=== PATIENT | female | born 1995 | race Caucasian/White ===

== ENCOUNTER 2016-09-02 21:41 | Emergency (ER) | payer SELFPAY ==
[~2016-09-02] VITALS: Ht 152.4 cm; Wt 45.4 kg
[~2016-09-02 21:41] MED LIST: CEPH500C PO; PREN-115 PO; [UNRECOGNIZED DRUG - REMARK]
--- OUTSIDE RECORDS SUMMARY | 2016-09-02 21:52 | XMS REPORT | Continuity of Care Document ---
Author Author [facility] Organization [facility] Address Unknown Phone Unavailable Allergies Active Description Code Type Severity Reaction Onset Reported/Identified Relationship to Patient Clinical Status Yes ceftriaxone Drug Allergy N/A N/A Erroneous Yes ROCEPHIN Drug Allergy N/A Rash 10/10/2011 Yes Rocephin Drug Allergy N/A N/A 04/25/2013 Yes No known allergies NK N/A N/A 04/26/2013 Confirmed or Verified Medications Problems Date Dx Coded Attending Type Code Diagnosis Diagnosed By 03/23/2009 D 079.99 UNSPEC VIRAL INFECTION 03/23/2009 D 276.51 DEHYDRATION 05/18/2009 D 543.0 HYPERPLASIA OF APPENDIX 05/18/2009 A 789.03 ABDOMINAL PAIN RT LW GLENNA 07/21/2010 D 789.00 ABDOMINAL PAIN, UNSPECIF 11/01/2010 D 789.00 ABDOMINAL PAIN, UNSPECIF 11/02/2010 D 789.00 ABDOMINAL PAIN, UNSPECIF 12/06/2010 D 569.3 RECTAL ANAL HEMORRHAGE 12/06/2010 D 787.91 DIARRHEA 12/06/2010 D 789.06 ABDOMINAL PAIN EPIGASTRI 12/06/2010 D 569.3 RECTAL ANAL HEMORRHAGE 12/06/2010 D 787.91 DIARRHEA 12/06/2010 D 789.06 ABDOMINAL PAIN EPIGASTRI 04/25/2013 JAIRO ALBERTO, YOHANNES Ordoñez 599.0 URIN TRACT INFECTION NOS 04/25/2013 JAIRO ALBERTO, YOHANNES Ordoñez 644.03 THRT ALESSANDRA LABOR-ANTEPART 04/25/2013 JAIRO ALBERTO, YOHANNES Ordoñez 646.63 INFECTION-ANTEPARTUM 04/27/2013 JERRELL ALBERTO, KENNEDI Ordoñez 054.10 GENITAL HERPES NOS 04/27/2013 JERRELL ALBERTO, KENNEDI Ordoñez 647.63 OTH VIRAL DIS-ANTEPARTUM 04/27/2013 JERRELL ALBERTO, KENNEDI Ordoñez 648.93 OTH CURR COND-ANTEPARTUM 04/27/2013 JERRELL ALBERTO, KENNEDI Ordoñez 780.60 FEVER NOS 04/27/2013 JERRELL ALBERTO, KENNEDIChester Ordoñez 789.09 ABDOMINAL PAIN, OTHER 04/30/2013 YOHANNES GILL MD 054.10 GENITAL HERPES NOS 04/30/2013 YOHANNES GILL MD 647.61 OTH VIRAL DIS-DELIVERED 04/30/2013 YOHANNES GILL MD 658.11 ALESSANDRA RUPT MEMBRAN-DELIV 04/30/2013 YOHANNES GILL MD 658.13 ALESSANDRA RUPT MEMB-ANTEPART 04/30/2013 YOHANNES GILL MD V27.0 DELIVER-SINGLE LIVEBORN 05/02/2013 YOHANNES GILL MD 054.10 GENITAL HERPES NOS 05/02/2013 YOHANNES GILL MD 647.61 OTH VIRAL DIS-DELIVERED 05/02/2013 YOHANNES GILL MD 658.11 ALESSANDRA RUPT MEMBRAN-DELIV 05/02/2013 YOHANNES GILL MD 658.13 ALESSANDRA RUPT MEMB-ANTEPART 05/02/2013 YOHANNES GILL MD V27.0 DELIVER-SINGLE LIVEBORN Procedures Code [place] [address] HYDRATE IV INFUSION, ADD-ON JERRELL ALBERTO , KENNEDI E 03/22/2009 69886 THER/PROPH/DIAG INJ, IV PUSH JERRELL ALBERTO , KENNEDI E 03/22/2009 39276 OBSERVATION CARE EZEKIEL ALBERTO, BUSHRA Strickland 03/22/2009 99759 EMERGENCY DEPT VISIT EZEKIEL ALBERTO, BUSHRA Strickland 03/22/2009 J0456 AZITHROMYCIN JERRELL ALBERTO, KENNEDI E 03/22/2009 87532 ROUTINE VENIPUNCTURE JERRELL ALBERTO, KENNEDI E 03/23/2009 60597 CHEST X-RAY JERRELL ALBERTO, KENNEDI E 03/23/2009 49259 COMPLETE CBC W/AUTO DIFF WBC JERRELL ALBERTO , KENNEDI E 03/23/2009 J7050 NS SOLUTION 250 CC INFUSION JERRELL ALBERTO , KENNEDI E 03/23/2009 J7120 RINGER'S LACTATE INFUSION JERRELL ALBERTO, KENNEDI E 03/23/2009 30682 ANESTH, SURG LOWER ABDOMEN KHOITSONIA 05/18/2009 77094 THER/PROPH/DIAG INJ, SC/IM YOHANNES GILL MD 07/21/2010 80539 EMERGENCY DEPT VISIT JAIRO ALBERTO, OYHANNES Baer 07/21/2010 J0696 CEFTRIAXONE SODIUM INJECTION JAIRO ALBERTO, YOHANNES Baer 07/21/2010 99061 ROUTINE VENIPUNCTURE JERRELL ALBERTO, KENNEDI E 11/01/[address] ABDOMEN W/DYE JERRELL ALBERTO, KENNEDI E 11/01/2010 88738 COMPREHEN METABOLIC PANEL JERRELL ALBERTO, KENNEDI E 11/01/2010 50611 COMPLETE CBC W/AUTO DIFF WBC JERRELL ALBERTO , KENNEDI E 11/01/2010 69596 EMERGENCY DEPT VISIT JERRELL ALBERTO, KENNEDI E 11/01/2010 Q9967 LOCM 300-399MG/ML IODINE,1ML JERRELL ALBERTO , KENNEDI E 11/01/2010 91539 HEPATOBILIARY IMAGING JERRELL ALBERTO, KENNEDI E 11/02/2010 A9537 TC99M MEBROFENIN JERRELL ALBERTO, KENNEDI E 11/02/2010 42459 UPPR GI ENDOSCOPY, DIAGNOSIS JERRELL ALBERTO , KENNEDI E 12/06/2010 16371 DIAGNOSTIC COLONOSCOPY JERRELL ALBERTO, KENNEDI E 12/06/2010 96416 ANESTH, LOW INTESTINE SCOPE VINTSONIA 12/06/2010 98773 URINALYSIS, AUTO W/SCOPE JAIRO ALBERTO, YOHANNES Baer 04/25/2013 46651 HYDRATE IV INFUSION, ADD-ON YOHANNES GILL MD 04/25/2013 35954 THER/PROPH/DIAG IV INF, INIT JAIRO ALBERTO, YOHANNES Baer 04/25/2013 82143 TX/PRO/DX INJ NEW DRUG YOHANNES URBAN MD 04/25/2013 58208 TX/PRO/DX INJ NEW DRUG YOHANNES LUCIANO MD 04/25/2013 56928 OBSERVATION CARE YOHANNES GILL MD 04/25/2013 42628 EMERGENCY DEPT VISIT YOHANNES GILL MD 04/25/2013 J0696 CEFTRIAXONE SODIUM INJECTION YOHANNES GILL MD 04/25/2013 J2405 ONDANSETRON HCL INJECTION YOHANNES GILL MD 04/25/2013 J7030 INFUSION, NS, 1000 CC YOHANNES GILL MD 04/25/2013 J7050 NS SOLUTION 250 CC INFUSION YOHANNES GILL MD 04/25/2013 64415 OB , LIMITED, FETUS(S) JAIRO ALBERTO, YOHANNES Baer 04/26/2013 56801 URINALYSIS, AUTO W/SCOPE JAIRO ALBERTO, YOHANNES J 04/26/2013 93965 HYDRATE IV INFUSION, ADD-ON JAIRO ALBERTO , YOHANNES J 04/26/2013 72700 THER/PROPH/DIAG IV INF, INIT JAIRO ALBERTO, YOHANNES Baer 04/26/2013 66622 TX/PRO/DX INJ NEW DRUG LUISA GILL MD, YOHANNES J 04/26/2013 55318 OBSERVATION CARE JAIRO ALBERTO, YOHANNES J 04/26/2013 56352 EMERGENCY DEPT VISIT JAIRO ALBERTO, YOHANNES J 04/26/2013 J0696 CEFTRIAXONE SODIUM INJECTION JAIRO ALBERTO, YOHANNES J 04/26/2013 J2270 MORPHINE JAIRO ALBERTO, YOHANNES Baer 04/26/2013 J2405 ONDANSETRON HCL INJECTION JAIRO ALBERTO, YOHANNES J 04/26/2013 J7030 INFUSION, NS, 1000 CC JAIRO ALBERTO, YOHANNES J 04/26/2013 J7050 NS SOLUTION 250 CC INFUSION JAIRO ALBERTO , YOHANNES J 04/26/2013 93791 URINE CULTURE/COLONY COUNT JAIRO ALBERTO , YOHANNES J 04/27/2013 02118 HYDRATE IV INFUSION, ADD-ON JAIRO ALBERTO , YOHANNES J 04/27/2013 40108 THER/PROPH/DIAG IV INF LUISA GILL MD, YOHANNES Baer 04/27/2013 24556 OBSERVATION CARE JAIRO ALBERTO, YOHANNES J 04/27/2013 J0696 CEFTRIAXONE SODIUM INJECTION YOHANNES GILL MD 04/27/2013 J7030 INFUSION, NS, 1000 CC JAIRO ALBERTO, YOHANNES J 04/27/2013 J7050 NS SOLUTION 250 CC INFUSION JAIRO ALBERTO , YOHANNES J 04/27/2013 741 LOW CERVICAL JAIRO ALBERTO, YOHANNES Baer 04/30/2013 04788 ANESTH, CS DELIVERY BUSHRA FALCON MD 04/30/2013 Results Test Result Range Urinalysis - 04/25/13 00:25 Amorphous Crystals 2+ pH 7.0 4.5-8.0 Nitrite Negative Negative Leukocyte Negative Negative Ketones Negative Negative Glucose Negative Negative Color Dk Yellow Yellow Blood 1+ Negative Bilirubin Negative Negative Specific [place] 1.020 1.004-1.035 Urine RBC N3-5 /hpf NONESEEN;NEG Protein 1+ Negative Urine Appearance Cloudy Clear Calcium Oxalate Crystals 2+ None Seen Urine WBC N0-2 /hpf N;NONESEEN Urobilinogen 2.0 EU/dl 0.1-1.0 Urinalysis - 04/26/13 18:57 pH 6.5 4.5-8.0 Nitrite Negative Negative Leukocyte 3+ Negative Ketones 3+ Negative Glucose Negative Negative Color Dark yello Yellow Blood 2+ Negative Bilirubin 1+ Negative Squamous Epis 3+ Specific [place] >=1.030 1.004-1.035 Urine RBC 30-40 Protein 2+ Negative Urine Appearance Cloudy Clear Urine Bacteria 1+ Urine WBC 55-60 Urobilinogen 1.0 EU dL Culture Urine - 04/26/13 18:57 Culture Urine NG HGB - 04/30/13 07:35 HGB 9.2 G/DL 12.0-16.0 HCT - 04/30/13 07:35 HCT 26.8 % 37.0-47.0 Encounters ACCT No. Visit Date/Time Discharge Status Pt. Type Provider Facility Loc./Unit Complaint [id number] 2012 22:10:00 2012 23:50:00 DIS Emergency [id number] 11/19/2012 22:02:00 2012 00:01:00 DIS Emergency [id number] 11/09/2012 21:55:00 2012 22:52:00 DIS Emergency
--- NOTE | 2016-09-02 22:05 | ED Abdominal Pain ---
General Chief Complaint: General Problems/Pain Stated Complaint: L AB PAIN, COUGH Nursing Triage Note: PT TO ED W/ C/O LLQ PAIN, POS PREG TEST ET COUGH X2 WKS Sepsis Screen: No Definite Risk Source of Information: Patient, RN Notes Reviewed Exam Limitations: No Limitations (YARY MENDEZ DO) History of Present Illness Time Seen By Provider: 22:05 (YARY MENDEZ DO) Initial Comments To ER with a persistent cough and left lower abdominal pain. The cough has been nonproductive and present for 2 weeks. The left lower quadrant abdominal pain has been present for 3 days. 3 days ago, she took her first positive home test. 2 days ago she took 2 more home tests, both of which were also positive. She denies any vaginal bleeding or vaginal discharge. She states that she was living in [facility] during July of this year when she had a miscarriage. The miscarriage started on July 11 and she ultimately passed the fetus on July 17. She has not had any vaginal bleeding since then. She did not have to have a D&C. She is scheduled to see the [facility] here in [place] on Sunday, 09/04. The pain to the left lower quadrant is worsened by laughing coughing and sneezing. Timing/Duration: 2-3 Days Severity/Quality: Moderate Location: LLQ Radiation: No Radiation Associated Symptoms: Denies Symptoms (CHIQUITA TOSCANO APRN) Allergies and Home Medications Allergies Coded Allergies: Metronidazole HCl (Verified Allergy, Mild, 11/09/12) metronidazole (Verified Allergy, Mild, 11/09/12) ondansetron (Verified Allergy, Unknown, 09/02/16) Home Medications Cefdinir 300 Mg Capsule #14 300 MG PO BID Prescribed by: YARY MENDEZ on 09/02/16 5832 Review of Systems Constitutional: see HPI EENTM: No Symptoms Reported Respiratory: No Symptoms Reported Cardiovascular: No Symptoms Reported Gastrointestinal: See HPI Abdominal Pain Genitourinary: No Symptoms Reported Musculoskeletal: no symptoms reported Skin: no symptoms reported Psychiatric/Neurological: No Symptoms Reported Endocrine: No Symptoms Reported Hematologic/Lymphatic: No Symptoms Reported (CHIQUITA TOSCANO APRN) All Other Systems Reviewed Negative Unless Noted: Yes (Negative excepted noted.) (YARY MENDEZ DO) Past Tflyykq-Ahttjb-Duneib Hx Patient Social History Alcohol Use: Denies Use Recreational Drug Use: No Smoking Status: Current Everyday Smoker Type Used: Cigarettes Recent Foreign Travel: No Contact w/Someone Who Travel: No Recent Infectious Disease Expo: No Recent Hopitalizations: No (YARY MENDEZ DO) Surgeries HX Surgeries: Yes Surgeries: Section (YARY MENDEZ DO) Respiratory Hx Respiratory Disorders: No (YARY MENDEZ DO) Cardiovascular Hx Cardiac Disorders: No (YARY MENDEZ DO) Neurological Hx Neurological Disorders: No (YARY MENDEZ DO) Reproductive System Hx : 3 Hx Para: 1 Hx Total # of Abortions (Spona: 1 Sexually Transmitted Disease: Yes (HERPES) HIV/AIDS: No (YARY MENDEZ DO) Genitourinary Hx Genitourinary Disorders: Yes Genitourinary Disorders: UTI-Chronic (YARY MENDEZ DO) Gastrointestinal Hx Gastrointestinal Disorders: No (YARY MENDEZ DO) Musculoskeletal Hx Musculoskeletal Disorders: No (YARY MENDEZ DO) Endocrine Hx Endocrine Disorders: No (YARY MENDEZ DO) HEENT HX ENT Disorders: No (YARY MENDEZ DO) Cancer Hx Cancer: No (YARY MENDEZ DO) Psychosocial Hx Psychiatric Problems: Yes Behavioral Health Disorders: Anxiety, Depression (YARY MENDEZ DO) Integumentary HX Skin/Integumentary Disorder: Yes Skin/Integumentary Disorders: Herpes (YARY MENDEZ DO) Blood Transfusions Hx Blood Disorders: No (YARY MENDEZ DO) Family Medical History Significant Family History: No Pertinent Family Hx (YARY MENDEZ DO) Physical Exam Vital Signs VS - Last 72 Hours, by Label 09/02/16 21:58 Temp 98.1 Pulse 97 Resp 18 B/P 106/71 Pulse Ox 97 O2 Delivery Room Air (CHIQUITA TOSCANO APRN) Vital Signs Capillary Refill : Less Than 3 Seconds (YARY MENDEZ DO) General Appearance: WD/WN no apparent distress HEENT: PERRL/EOMI normal ENT inspection Neck: non-tender full range of motion Respiratory: no respiratory distress no accessory muscle use Gastrointestinal: normal bowel sounds soft tenderness (left lower quadrant) Extremities: normal range of motion non-tender Neurologic/Psychiatric: alert normal mood/affect oriented x 3 Skin: normal color warm/dry (CHIQUITA TOSCANO APRN) Progress/Results/Core Measures Results/Orders Lab Results Laboratory Tests Test 09/02/16 22:00 09/02/16 22:14 Range/Units Urine Amorphous Sediment MOD EMMY URATES H /LPF Urine Bacteria LARGE H /HPF Urine Bilirubin NEGATIVE NEGATIVE Urine Casts NONE /LPF Urine Clarity VERY CLOUDY H Urine Color YELLOW Urine Crystals PRESENT H /LPF Urine Culture Indicated YES Urine Glucose (UA) NEGATIVE NEGATIVE Urine Ketones NEGATIVE NEGATIVE Urine Leukocyte Esterase 3+ H NEGATIVE Urine Mucus NEGATIVE /LPF Urine Nitrite POSITIVE H NEGATIVE Urine Protein NEGATIVE NEGATIVE Urine RBC 5-10 H /HPF Urine RBC (Auto) 2+ H NEGATIVE Urine Specific [place] 1.010 L 1.016-1.022 Urine Squamous Epithelial Cells 10-25 H /HPF Urine Urobilinogen NORMAL NORMAL MG/DL Urine WBC 10-25 H /HPF Urine pH 7 5-9 Basophils # (Auto) 0.0 0.0-0.1 10^3/uL Basophils (%) (Auto) 0 0-10 % Eosinophils # (Auto) 0.2 0.0-0.3 10^3/uL Eosinophils (%) (Auto) 2 0-10 % Hematocrit 40 35-52 % Hemoglobin 13.9 11.5-16.0 G/DL Lymphocytes # (Auto) 2.2 1.0-4.0 X 10^3 Lymphocytes (%) (Auto) 27 12-44 % Mean Corpuscular Hemoglobin 31 25-34 PG Mean Corpuscular Hemoglobin Concent 35 32-36 G/DL Mean Corpuscular Volume 91 80-99 FL Mean Platelet Volume 9.2 7.4-10.4 FL Monocytes # (Auto) 0.6 0.0-1.0 X 10^3 Monocytes (%) (Auto) 8 0-12 % Neutrophils # (Auto) 5.1 1.8-7.8 X 10^3 Neutrophils (%) (Auto) 63 42-75 % Platelet Count 233 130-400 10^3/uL Red Blood Count 4.42 4.35-5.85 10^6/uL Red Cell Distribution Width 12.9 10.0-14.5 % White Blood Count 8.1 4.3-11.0 10^3/uL (CHIQUITA TOSCANO APRN) Micro Results Microbiology 09/02/16 Urine Culture - Final, Complete Escherichia Coli (YARY MENDEZ DO) My Orders Orders-CHIQUITA TOSCANO APRN Us Ob<14 Wks Sngle W/Transvag (09/02/16 22:09) Cefdinir Capsule (Omnicef Capsule) (09/02/16 22:45) (CHIQUITA TOSCANO APRN) Vital Signs/I&O Vital Sign - Last 12Hours 09/02/16 21:58 Temp 98.1 Pulse 97 Resp 18 B/P 106/71 Pulse Ox 97 O2 Delivery Room Air (CHIQUITA TOSCANO APRN) Blood Pressure Mean: 83 Departure Communication Progress Notes 0-care turned over to Dr. Mendez. Chemistry, quantitative hCG, ultrasound pending. Omnicef is been given for the UTI. (CHIQUITA TOSCANO APRN) Impression Impression: Primary Impression: Urinary tract infection Additional Impressions: LLQ abdominal pain IUP (intrauterine ), incidental Disposition: HOME, SELF-CARE Condition: Stable Departure-Patient Inst. Decision time for Depature: 23:29 (YARY MENDEZ DO) Referrals: RORY WU DO Patient Instructions: Urinary Tract Infection, Adult (DC) Scripts Cefdinir 300 Mg [id number] Mg PO BID #14 CAP Ref 0 Prov:YARY MENDEZ DO 09/02/16 YARY MENDEZ DO Sep 02, 2016 22:05 CHIQUITA TOSCANO APRN Sep 02, 2016 22:12 (AST/SGOT) 15 5-34 U/L BUN/Creatinine Ratio 13 Basophils # (Auto) 0.0 0.0-0.1 10^3/uL Basophils (%) (Auto) 0 0-10 % Blood Urea Nitrogen 7 7-18 MG/DL Calcium Level 8.8 8.5-10.1 MG/DL Carbon Dioxide Level 20 L 21-32 MMOL/L Chloride Level 106 98-107 MMOL/L Creatinine 0.56 L 0.60-1.30 MG/DL Eosinophils # (Auto) 0.2 0.0-0.3 10^3/uL Eosinophils (%) (Auto) 2 0-10 % Estimat Glomerular Filtration Rate > 60 Glucose Level 91 70-105 MG/DL Hematocrit 40 35-52 % Hemoglobin 13.9 11.5-16.0 G/DL Human Chorionic Gonadotropin, Quant 91043 H <5 MIU/ML Lymphocytes # (Auto) 2.2 1.0-4.0 X 10^3 Lymphocytes (%) (Auto) 27 12-44 % Mean Corpuscular Hemoglobin 31 25-34 PG Mean Corpuscular Hemoglobin Concent 35 32-36 G/DL Mean Corpuscular Volume 91 80-99 FL Mean Platelet Volume 9.2 7.4-10.4 FL Monocytes # (Auto) 0.6 0.0-1.0 X 10^3 Monocytes (%) (Auto) 8 0-12 % Neutrophils # (Auto) 5.1 1.8-7.8 X 10^3 Neutrophils (%) (Auto) 63 42-75 % Platelet Count 233 130-400 10^3/uL Potassium Level 3.8 3.6-5.0 MMOL/L Red Blood Count 4.42 4.35-5.85 10^6/uL Red Cell Distribution Width 12.9 10.0-14.5 % Sodium Level 137 135-145 MMOL/L Total Bilirubin 0.3 0.1-1.0 MG/DL Total Protein 6.6 6.4-8.2 G/DL White Blood Count 8.1 4.3-11.0 10^3/uL (YARY MENDEZ DO) My Orders Orders-CHIQUITA TOSCANO APRN Us Ob<14 Wks Sngle W/Transvag (09/02/16 22:09) Cefdinir Capsule (Omnicef Capsule) (09/02/16 22:45) (CHIQUITA TOSCANO APRN) My Orders Orders-YARY MENDEZ DO Cbc With Automated Diff (09/02/16 22:06) Comprehensive Metabolic Panel (09/02/16 22:06) Hcg,Quantitative (09/02/16 22:06) Ua Culture If Indicated (09/02/16 22:06) Urine Culture (09/02/16 22:00) (YARY MENDEZ DO) Vital Signs/I&O Vital Sign - Last 12Hours 09/02/16 21:58 Temp 98.1 Pulse 97 Resp 18 B/P 106/71 Pulse Ox 97 O2 Delivery Room Air (CHIQUITA TOSCANO APRN) Blood Pressure Mean: 83 Departure Communication Progress Notes 2239-care turned over to Dr. Mendez. Chemistry, quantitative hCG, ultrasound pending. Omnicef is been given for the UTI. (CHIQUITA TOSCANO APRN) Impression Impression: Primary Impression: Urinary tract infection Additional Impressions: LLQ abdominal pain IUP (intrauterine ), incidental Disposition: 01 HOME, SELF-CARE Condition: Stable Departure-Patient Inst. Decision time for Depature: 23:29 (YARY MENDEZ DO) Referrals: RORY WU DO Patient Instructions: Urinary Tract Infection, Adult (DC) Scripts Cefdinir 300 Mg [id number] Mg PO BID #14 CAP Ref 0 Prov:YARY MENDEZ DO 09/02/16 YARY MENDEZ DO Sep 02, 2016 22:05 CHIQUITA TOSCANO APRN Sep 02, 2016 22:12
[2016-09-02 22:13] LABS: BILIRUBIN,URINE NEGATIVE (NEGATIVE); KETONES,URINE NEGATIVE (NEGATIVE); LEUKOCYTE ESTERASE ,URINE 3+ (NEGATIVE); NITRITE,URINE POSITIVE (NEGATIVE); PH,URINE 7 (5-9); PROTEIN,URINE NEGATIVE (NEGATIVE); UROBILINOGEN,URINE NORMAL (NORMAL)
[2016-09-02 22:24] LABS: BASOPHILS % (AUTO) 0 % (0-10); EOSINOPHILS # (AUTO) 0.2 10^3/uL (0.0-0.3); EOSINOPHILS % (AUTO) 2 % (0-10); LYMPHOCYTES # (AUTO) 2.2 X 10^3 (1.0-4.0); LYMPHOCYTES % (AUTO) 27 % (12-44); MEAN CORPUSCULAR HEMOGLOBIN 31 PG (25-34); MEAN CORPUSCULAR HGB CONC 35 G/DL (32-36); MEAN CORPUSCULAR VOLUME 91 FL (80-99); MEAN PLATELET VOLUME 9.2 FL (7.4-10.4); MONOCYTES # (AUTO) 0.6 X 10^3 (0.0-1.0); MONOCYTES % (AUTO) 8 % (0-12); NEUTROPHILS # (AUTO) 5.1 X 10^3 (1.8-7.8); NEUTROPHILS % (AUTO) 63 % (42-75); PLATELET COUNT 233 10^3/uL (130-400); RED BLOOD COUNT 4.42 10^6/uL (4.35-5.85); RED CELL DISTRIBUTION WIDTH 12.9 % (10.0-14.5); WHITE BLOOD COUNT 8.1 10^3/uL (4.3-11.0)
[2016-09-02 22:40] LABS: ALANINE AMINOTRANSFERASE 15 U/L (0-55); ALBUMIN 4.3 G/DL (3.2-4.5); ANION GAP 11 MMOL/L (5-14); ASPARTATE AMINO TRANSFERASE 15 U/L (5-34); BILIRUBIN,TOTAL 0.3 MG/DL (0.1-1.0); BLOOD UREA NITROGEN 7 MG/DL (7-18); BUN/CREATININE RATIO 13; CALCIUM 8.8 MG/DL (8.5-10.1); CARBON DIOXIDE 20 MMOL/L (21-32); CHLORIDE 106 MMOL/L (98-107); CREATININE SERUM 0.56 MG/DL (0.60-1.30); GFR ESTIMATED > 60; GLUCOSE 91 MG/DL (70-105); POTASSIUM 3.8 MMOL/L (3.6-5.0); SODIUM 137 MMOL/L (135-145); TOTAL PROTEIN 6.6 G/DL (6.4-8.2)
[2016-09-02] MEDS ORDERED: CEFDINIR 300 MG (OMNICEF) CAP PO ONE (22:45)
[2016-09-02] MEDS ORDERED: CEFD300C3 PO (23:30)
[2016-09-03 02:46] VITALS: BP 0/0
--- NOTE | 2016-09-03 06:56 | Diagnostic Imaging Report ---
INDICATION: Positive test. Recent prior miscarriage. COMPARISON: None FINDINGS: There is a single live intrauterine gestation demonstrated. Yolk sac and pole demonstrated. [place]-rump length measures about 2 mm which corresponds to an estimated gestational age of 5 weeks 6 days. Cardiac activity is detected with a heart rate of 105 beats per minute. The right ovary appears unremarkable. There is a 2.3 cm hypoechoic lesion in the left ovary which is probably a corpus luteum cyst. No free fluid is seen. IMPRESSION: Single live intrauterine gestation with estimated gestational age of 5 weeks 6 days based on today's ultrasound. Probable corpus luteum cyst in left ovary. No acute abnormality is suspected. Agree with [facility] interpretation Dictated by: Dictated on workstation # [id number]
== END 2016-09-02 23:39 | disposition home or self-care (01) ==
LOC: EDUNIT# 21:41 → ER 21:47
DX: O23.41 Unspecified infection of urinary tract in pregnancy, first trimester (principal); O99.331 Smoking (tobacco) complicating pregnancy, first trimester; Z3A.01 Less than 8 weeks gestation of pregnancy
CPT/HCPCS: 36415; 76801; 76817; 80053; 81000; 84702; 85025; 87088; 87186; 99282